=== PATIENT | male | born 1990 | race Caucasian/White ===

== ENCOUNTER 2017-12-04 15:21 | Emergency (ER) | payer OTHER ==
[~2017-12-04] VITALS: Ht 170.2 cm; Wt 93.0 kg
[2017-12-04] MEDS ORDERED: PROPRANOLOL HCL10 MG PO (16:01)
== END 2017-12-04 23:00 | disposition home or self-care (01) ==
LOC: ER 15:21
DX: R30.0 Dysuria (principal); N48.89 Other specified disorders of penis; B37.49 Other urogenital candidiasis

== ENCOUNTER → 2017-12-16 | Emergency (ER) | payer OTHER ==
[~2017-12-16] VITALS: Ht 170.2 cm; Wt 93.9 kg
[~2017-12-16] MED LIST: NORFLEX100MG PO; PROPRANOLOL HCL10 MG PO; TRAMADOL HCL50 MG PO
== END | disposition home or self-care (01) ==
LOC: ER 00:36
DX: M54.89 Other dorsalgia (principal)

== ENCOUNTER → 2018-01-17 | Emergency (ER) | payer OTHER ==
[~2018-01-17] VITALS: Ht 170.2 cm; Wt 91.2 kg
[~2018-01-17] MED LIST changes: +ULTRAM50 MG PO
== END | disposition home or self-care (01) ==
LOC: ER 03:18
DX: S30.0XXA Contusion of lower back and pelvis, initial encounter (principal); M54.5 Low back pain; W18.39XA Other fall on same level, initial encounter; Y93.89 Activity, other specified; Y92.098 Other place in other non-institutional residence as the place of occurrence of the external cause; Y99.8 Other external cause status